=== PATIENT | male | born 1965 | race Caucasian/White ===

== ENCOUNTER 2024-09-15 09:14 | Emergency (ER) | payer OTHER, SELFPAY ==
[2024-09-15 09:28] VITALS: BP 165/96; PULSE 90; RESP 15; TEMP 36.7; O2SAT 100; BMI 28.7
--- NOTE | 2024-09-15 09:36 | CT_ITS ---
FINAL REPORT TECHNIQUE: Thin section axial images were obtained from the lung bases to the pubic symphysis without IV contrast. Coronal reconstruction images were obtained from the axial data. This study was performed with techniques to keep radiation doses as low as reasonably achievable, (ALARA). Individualized dose reduction techniques using automated exposure control or adjustment of mA and/or kV according to the patient's size were employed. CLINICAL HISTORY: Right flank pain, r/o stones COMPARISON: None FINDINGS: In the right lower lung, on image #1, there is a nodular density adjacent to the left atrium. This is likely vascular; however, a pulmonary nodule is not excluded. There are bilateral nonobstructing renal stones. There is mild right hydronephrosis and hydroureter to the level of an obstructing 3 mm right UVJ stone. There are no obstructing stones on the left. The gallbladder is present. The remaining unenhanced solid abdominal organs are without acute abnormality. There is no evidence of small bowel obstruction. There is diverticulosis without evidence of diverticulitis. 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 The duodenum does not cross the midline. The cecum is in the left lower quadrant. The appendix is visualized and is normal. There is a fat-containing right inguinal hernia. There is no lymphadenopathy or ascites. No acute osseous abnormality is identified. IMPRESSION: Obstructing 3 mm right UVJ stone. Bilateral nonobstructing renal stones. No other acute abnormality. Reviewed, Interpreted and Dictated by Cristy Costa MD Transcribed by Dyan Sosa Authenticated and [facility][1]
[2024-09-15 09:39] LABS: Basophils # 0.1 K/mm3 (0-0.2); Basophils % 0.5 % (0.1-2.0); Eosinophils # 0.1 Kmm3 (0.0-0.4); Eosinophils % 1.3 % (0.1-12.0); Hematocrit 41.2 % (42.0-52.0); Hemoglobin 14.4 g/dL (14.1-18.0); Immature Granulocytes # 0.04 10^3uL; Immature Granulocytes % 0.4 %; Lymphocytes # 1.1 K/mm3 (0.7-4.5); Lymphocytes % 10.5 % (10-50); Mean Corpuscular Hemoglobin 31.2 pg (27.0-31.2); Mean Corpuscular Volume 89.4 fl (80-94); Mean Platelet Volume 9.8 fl (7.4-10.4); Monocytes # 0.5 K/mm3 (0.1-1.0); Monocytes % 5.1 % (1.7-9.3); Neutrophils # 8.7 K/mm3 (1.8-7.8); Neutrophils % 82.2 % (37.0-80.0); Nucleated Red Blood Cells # 0 10^3/uL; Nucleated Red Blood Cells % 0 %; Platelet Count 235 K/mm3 (142-424); Red Blood Count 4.61 M/mm3 (4.60-6.20); Red Cell Distribution Width-SD 42.5 fL; White Blood Count 10.6 K/mm3 (4.8-10.8)
[2024-09-15] MEDS: LACTATED RINGERS 1000ML 1,000 ML 999 ML IV (09:46)
[2024-09-15] MEDS: MORPHINE 4MG/ML SYRINGE 4 MG IV (09:47)
[2024-09-15] MEDS: KETOROLAC 30MG/ML VIAL 15 MG IV (09:47)
[2024-09-15] MEDS: ONDANSETRON 4MG/2ML VIAL 4 MG IV (09:47)
[2024-09-15] MEDS: ACETAMINOPHEN 1,000MG/100ML VIAL 1000 MG IV (09:47)
[2024-09-15 10:01] LABS: Alanine Aminotransferase 44 U/L (12-78); Albumin Level 4.4 g/dl (3.5-5.0); Albumin/Globulin Ratio 1.6 (1.1-1.8); Alkaline Phosphatase 82 U/L (38-126); Anion Gap 9.7 mEq/L (5-15); Aspartate Amino Transferase 35 U/L (17-59); Bilirubin,Total 0.8 mg/dl (0.2-1.3); Blood Urea Nitrogen 24 mg/dl (9-20); Calcium 9.3 mg/dl (8.4-10.2); Carbon Dioxide 24 mmol/L (22.0-30.0); Chloride 108 mmol/L (98-107); Creatinine Clearance Estimated 79 mL/min (50-200); Estimated Glomerular Filt Rate 57 ml/min (>60); GFR (African American) 68 ML/MIN (>60); Globulin 2.7 g/dL (1.3-3.2); Glucose 155 mg/dl (74-100); Potassium 3.7 mmoL/L (3.5-5.1); Sodium 138 mmol/L (136-145); Total Protein,Serum 7.1 g/dl (6.3-8.2)
--- NOTE | 2024-09-15 10:05 | ED_ITS ---
Discharge Plan Disposition Patient Disposition: Home, Self-Care Condition: Good Prescriptions Prescriptions: New ketorolac 10 mg tablet 10 mg PO Q8H PRN (Reason: pain) 3 Days Qty: 12 0RF oxycodone 5 mg tablet 5 mg PO Q8H PRN (Reason: pain) Qty: 12 0RF tamsulosin [Flomax] 0.4 mg capsule 0.4 mg PO DAILY Qty: 14 0RF ondansetron 4 mg tablet,disintegrating 4 mg PO Q8H PRN (Reason: nausea and vomiting) 4 Days Qty: 12 0RF Referrals Follow up/Referrals: Provider,Referral, MD [Primary Care Provider] - See instructions Activity Restrictions/Add. Instructions Additional Instructions/Restrictions: You were evaluated in the emergency department today. You were diagnosed with a kidney stone. Follow-up closely with urology. We do not have an interventional urologist at our healthcare facility, but one close option is Dr. Jeronimo Frausto with [facility] who has office hours in [place] ([address] [place] [address] [address], [place] [address] - [phone]). You will need to call a urologist to schedule an appointment. Please make sure you drink plenty of fluids and stay orally hydrated. Toradol is an NSAID like ibuprofen and aleve, so do not take other NSAIDs while taking this medication. Try getting by with toradol and Tylenol, but you may choose to take the narcotic pain medication provided to you in the event of severe pain not controlled by these medications. Do not drive or operate heavy machinery while taking narcotic pain medication, as it can be sedating. Narcotic pain medication can be addicting and can cause constipation. Follow-up closely with your primary care provider as well. Return to the emergency department for new or worsening symptoms such as significant worsening in pain, fever greater than 100.4 ?F, intractable nausea and vomiting. Clinical Impressions Clinical Impression: Calculus of right ureter Stand Alone Forms Stand Alone Forms: Work/School Release Instructions Patient Instructions: DI for Kidney Stones Print Language Print Language: Taiwanese Discharge ED Provider: Michelle Taylor General Adult HPI General Chief complaint: Back Pain/Injury Stated complaint: Side and Back Time Seen by Provider: 09/15/24 09:16 Mode of Arrival: Wheelchair Source of Information: Patient Description of Symptoms (Recalled from ER Triage Doc. by RN): patient states about an hour ago he developed sudden right flank pain and vomitting. he describes the pain as sharp and stabbing. History of Present Illness HPI narrative: This patient is a 59-year-old male who denies significant past medical history presenting to the emergency department for evaluation with concern for severe right flank/back pain that started an hour and a half ago. He states that it radiates around to his right lower quadrant. It came on suddenly and was severe, sharp and stabbing. He has associated nausea and vomiting. He was well prior to this with no other concerns or complaints noted. No prior history of any surgical intra-abdominal issues or kidney stones in the past. No known trauma. Related Data Previous Rx's ?Medication ?Instructions ?Recorded ketorolac 10 mg tablet 10 mg PO Q8H PRN pain 3 days #12 09/15/24 tabs ondansetron 4 mg disintegrating 4 mg PO Q8H PRN nausea and 09/15/24 tablet vomiting 4 days #12 tabs oxycodone 5 mg tablet 5 mg PO Q8H PRN pain #12 tabs 09/15/24 tamsulosin 0.4 mg capsule (Flomax) 0.4 mg PO DAILY #14 caps 09/15/24 Allergies Allergy/AdvReac Type Severity Reaction Status Date / Time No Known Allergies Allergy Verified 09/15/24 09:35 [facility] Disclaimer: The information contained in this section may have been updated after the patient was seen, as this information can be updated by other users. Social History Smoking Status: Never smoker alcohol intake: never current occupational status: employed Travel in the last 8 weeks?: None ROS Obtained: Yes All systems reviewed & no additional complaints except as documented Physical Exam General General appearance: alert and in distress Comment: Extremely uncomfortable appearing, writhing in pain and actively vomiting Head Head exam: atraumatic and normocephalic Eye Eye exam: Present normal appearance, PERRL and EOMI ENT ENT exam: Present normal exam, normal oropharynx, mucous membranes moist and normal external ear exam Neck Neck exam: Present normal inspection, full ROM and trachea midline; Absent tenderness Chest Chest inspection: Present normal inspection and symmetric chest wall rise; Absent tenderness Respiratory Respiratory exam: Present normal lung sounds bilaterally; Absent respiratory distress, wheezes, stridor or accessory muscle use Cardiovascular Cardiovascular exam: Present regular rate and normal rhythm Abdominal Exam Abdominal exam: Present soft; Absent distention, tenderness or guarding Extremities Exam Extremities exam: Present normal inspection, full ROM and normal capillary refill; Absent tenderness or edema Back Exam Back exam: Present full ROM, tenderness and CVA tenderness (R) Neurological Exam Neurological exam: Present alert, oriented X3, CN II-XII intact and normal gait; Absent motor sensory deficit Psychiatric Psychiatric exam: Present normal affect and normal mood Skin Skin exam: Present warm and dry Medical Decision Making Medical Records Medical records reviewed: Yes I reviewed the patient's medical records. Screening: Per USPSTF and CDC recommendations, given the prevalence of disease in our region, it is our hospital?s policy to screen for HIV and viral Hepatitis for all patients aged 18 and over and those with ongoing risk factors. Franc Inquiry Pt receiving controlled substance: Yes Franc was queried for this patient: Yes Risks and benefits of using a controlled substance: were discussed with pt by me Vital Signs: 09/15/24 09:28 09/15/24 11:13 09/15/24 11:43 Temperature 98.1 F Temperature Source Oral Pulse Rate 90 80 Pulse Rate [Right Radial] 90 Respiratory Rate 15 16 Blood Pressure 130/81 143/88 H Blood Pressure [Right Arm] 165/96 H Blood Pressure Mean [Right Arm] 119 Blood Pressure Source Blood Pressure Source [Right Arm] Automatic Cuff Blood Pressure Position Blood Pressure Position [Right Arm] Sitting 02 Sat by Pulse Oximetry 100 100 96 Oxygen Delivery Method Room Air Room Air Room Air 09/15/24 12:00 09/15/24 12:32 Temperature 97.9 F Temperature Source Oral Pulse Rate 94 H 82 Pulse Rate [Right Radial] Respiratory Rate 18 Blood Pressure 143/88 H 143/88 H Blood Pressure [Right Arm] Blood Pressure Mean [Right Arm] Blood Pressure Source Automatic Cuff Blood Pressure Source [Right Arm] Blood Pressure Position Supine Blood Pressure Position [Right Arm] 02 Sat by Pulse Oximetry 100 Oxygen Delivery Method Room Air Lab Data Lab results reviewed: Yes I reviewed the patient's lab results. Lab Results 09/15/24 09:23: WBC 10.6, RBC 4.61, Hgb 14.4, Hct 41.2 L, MCV 89.4, MCH 31.2, MCHC 35.0, RDW 13.0, Plt Count 235, MPV 9.8, Neut % (Auto) 82.2 H, Lymph % (Auto) 10.5, [place] % (Auto) 5.1, Eos % (Auto) 1.3, Baso % (Auto) 0.5, Neut # (Auto) 8.7 H, Lymph # (Auto) 1.1, Canadian # (Auto) 0.5, Eos # (Auto) 0.1, Baso # (Auto) 0.1, Sodium 138, Potassium 3.7, Chloride 108 H, Carbon Dioxide 24, Anion Gap 9.7, BUN 24 H, Creatinine 1.30 H, Estimated Creat Clear 79, Estimated GFR 57 L, Est GFR ( Amer) 68, Glucose 155 H, Calcium 9.3, Total Bilirubin 0.8, AST 35, ALT 44, Alkaline Phosphatase 82, Total Protein 7.1, Albumin 4.4, Globulin 2.7, Albumin/Globulin Ratio 1.6 09/15/24 12:03: Urine Color Yellow, Urine Appearance Clear, Urine pH 6.0, Ur Specific [place] 1.020, Urine Protein Negative, Urine Glucose (UA) Negative, Urine Ketones Negative, Urine Blood Negative, Urine Nitrate Negative, Urine Bilirubin Negative, Urine Urobilinogen 0.2, Ur Leukocyte Esterase Negative, Urine RBC None, Urine WBC None, Ur Squamous Epith Cells Occasional, Urine Bacteria Trace 09/15/24 09:23 09/15/24 09:23 Orders (Tests/Meds): ED MEDICATIONS Discontinued Medications Generic Name Dose Route Start Last Admin Trade Name Marixa PRN Reason Stop Dose Admin Acetaminophen 1,000 mg 09/15/24 09:36 09/15/24 09:47 Acetaminophen 1,000mg/100ml Vial IV 09/15/24 09:37 1,000 mg ONCE ONE Administration Lactated Ringer's 1,000 mls @ 999 mls/hr 09/15/24 09:36 09/15/24 09:46 Lactated Ringer's 1000 Ml Bag IV 09/15/24 10:36 999 mls/hr .Q1H1M ONE Administration Ketorolac Tromethamine 15 mg 09/15/24 09:36 09/15/24 09:47 Ketorolac 30mg/Ml Vial IV 09/15/24 09:37 15 mg ONCE ONE Administration Morphine Sulfate 4 mg 09/15/24 09:36 09/15/24 09:47 Morphine 4mg/Ml Syringe IV 09/15/24 09:37 4 mg ONCE ONE Administration Ondansetron HCl 4 mg 09/15/24 09:36 09/15/24 09:47 Ondansetron 4mg/2ml Vial IV 09/15/24 09:37 4 mg ONCE ONE Administration Oxycodone/Acetaminophen 1 each 09/15/24 12:36 09/15/24 12:37 Oxycodone 10mg W/Apap 325mg Tablet PO 09/15/24 12:37 1 each ONCE ONE Administration ORDERS Category Date Time Status CT abdomen pelvis wo con Stat Cat Scan 09/15/24 09:36 Completed CBC w/Auto Diff [Complete Blood Count Auto Diff] Stat Lab 09/15/24 09:23 Completed CMP [Comprehensive Metabolic Panel] Stat Lab 09/15/24 09:23 Completed UA [Urinalysis and Microscopic] Stat Lab 09/15/24 12:03 Completed Urine Culture Stat Micro 09/15/24 12:03 Received Medical Decision Narrative: In summary, this patient is a 59-year-old man presenting to the Emergency Department for evaluation of severe right flank pain that started an hour and a half ago. Differential diagnoses considered include but are not limited to ureterolithiasis, pyelonephritis, cholecystitis, appendicitis, colitis, musculoskeletal strain/sprain. Ruling out the most morbid conditions drove assessment. On exam, the patient is very uncomfortable appearing, writhing around in distress and actively vomiting. He has right CVA tenderness. Abdominal exam is relatively benign. Workup included CBC, CMP, urinalysis, urine culture, CT abdomen pelvis without IV contrast. He was given a bolus of IV fluids as well as IV morphine, Toradol, acetaminophen, and Zofran for symptomatic improvement. I independently interpreted CT scan prior to the radiologist read and noted right-sided hydronephrosis with a ureteral stone that appears to have distended the bladder versus a right at the UVJ. Please see their read for final interpretation. They note that it is at the UVJ. Labs were obtained that demonstrated reassuring CBC with no significant leukocytosis, chemistry demonstrates a creatinine of 1.3 without prior for comparison. Urinalysis is not concerning for infection On reassessment, patient had great improvement after administration of IV morphine, Toradol, Zofran and fluids. He was feeling a whole lot better, up until about a time for discharge, at which point he was treated with oral oxycodone. Overall, his stone is very distal, is only 3 mm, and he has no significant GAUDENCIO, leukocytosis, or urine is concerning for infection. Given this, I feel that he is appropriate for discharge home with trial of passage. He was given instructions for very close follow-up with primary care as well as a urologist. He is given prescriptions for oxycodone, Zofran, Toradol, and Flomax. Strict return precautions were given. Critical Care Critical Care Time Critical Care Time: No
--- OUTSIDE RECORDS SUMMARY | 2024-09-15 10:23 | XMS_ITS | Data Portability ---
Author Organization [facility] [place] & Linda DUNCAN ADMIN Address [address] [place] [id number] Assessment No assessment recorded. Plan of Treatment Reminders Order Date Submit Date Provider Last Modified By Organization Details Last Modified Time Details Appointments None recorded. Lab pathology study - Punch BX from base of left side of neck 2022 023 [email or web address] [facility], [address], [facility] [address], [place], [address], 3 08:34:[address] referral - 58-year-old white male with history of superficial squamous cell carcinoma presents with a scaly lesion on left side of his nose present times several months to a year. May very well be an actinic keratosis but with his history a thought this should be evaluated further as well as a full skin check 2023 024 AMANDO [facility], [address] [place] [address], [address], 4 08:49:23 Procedures None recorded. Surgeries None recorded. Imaging XR, chest + abdomen 2022 023 [facility], [address], [place], [address], 3 16:43:56 Medication Orders omeprazole 40 mg capsule,del ayed release 2022 023 AMANDO [facility], [address] [facility], [place], [address], 3 16:33:38 Patient TargetsNo targets recorded. 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 May very well be an actinic keratosis but with his history a thought this should be evaluated further as well as a full skin check Referring Physician: Sridhar Mcallister, Family Medicine, Encounter Date: 10/30/2023 Results Created Date Observation Date Name Description Value Unit Range Abnormal Flag Note LastModifiedBy Organization Detail LastModifiedTime 04/28/2006/03/2023 PATHO LOGY REPOR T . Yaneli t Mater ial submi tted: . neck - BASE OF LEFT NECK, PUNCH BIOPS Y. Modif iers: base, left Not Available [facility] ([facility]) [address] [facility], [place], [address], 06/03/2023 15:17:21 04/28/2006/03/2023 PATHO LOGY REPOR T . Yaneli t Diagn osis: BASE OF LEFT NECK, PUNCH BIOPS Y: - SUPER FICIA L SQUAM OUS CELL CARCI NOMA. - SURGI ZARINA TERESA NS NEGAT PHUONG. COMME NT: H/E-S JAYLEN Barry RECUT S X2 EXAMI MUSA FOR BLOCK A1. [facility] 06/02 1406 Local Not Available [facility] ([facility]) [address] [facility], [place], [address], 06/03/2023 15:17:21 04/28/20 23 06/03/2023 PATHO LOGY REPOR T . Commen t Elect isela osborne d: . Abrahan glass MD, Patho logis t Not Available [facility] ([facility]) [address] [facility], [place], [address], 06/03/2023 15:17:21 04/28/2006/03/2023 PATHO LOGY REPOR T . Commen t Gross descr iptio n: . RECEI CHAYO IN FORMA [facility]URO LABEL ED WITH THE PATIE NTS NAME IS A 0.6 X 0.4 X 0.1 CM IRREG ULAR PIECE OF SHAVE D BROWN GA SKIN. INKED IN BLACK AT THE RESEC TION TERESA N, BISEC ALEXANDRA AND SUBMI TTED ENTIR LUCILLE IN ONE CASSE TTE. MZH/B XS 05/28 1524 Local Not Available [facility] ([facility]) [address] [facility], [place], [address], 06/03/2023 15:17:21 04/28/20 23 06/03/2023 PATHO LOGY REPOR T . Commen t Patho logis t provi ded ICD-1 0: L98.9 Not Available [facility] ([facility]) [address] [facility], [place], [address], 06/03/2023 15:17:21 04/28/20 23 06/03/2023 PATHO LOGY REPOR T . Commen t CPT . 55061 1 Not Available [facility] ([facility]) [address] [facility], [place], [address], 06/03/2023 15:17:21 04/14/20 23 04/14/2023 XR, chest + abdom en No observ ation record ed. [email or web address] [facility] - [facility] [address], [place], [address], 10/09/2023 14:57:17 Result Notes None recorded. Problems Name Problem SNOMED Code Status Onset Date Resolution Date Notes Provider Name and Address Organization Details Recorded Time Abdominal pain 73719214 Active 023 TRENA STEWART ena, [facility] & [place] 15:52:16 Problem Notes None recorded. Procedures Surgical History Date Name Laterality Status Provider Name and Address Organization Details Recorded Time 04/28/20 Punch Biopsy completed Sridhar Mcallister MD [address], [place], [address], [facility] & [place] 04/28/2023 20:05:08 closed reduction of fracture of humerus with percutaneous fixation using bone pin completed Tanika NAVARRO [facility] & [place] 04/14/2023 15:22:42 Back Surgery completed [facility]ARR[facility] & [place] 04/14/2023 15:22:54 Imaging Results Imaging Date Name Status LastModified by Organiz ation Details LastModified Time 04/14/2023 XR, chest + abdomen completed [email or web address] [facility] - [facility] [address], [place], [address], 10/09/2023 14:57:17 Procedure Notes None recorded. Medical Equipment None Reported. Allergies No known drug allergies Medications Name Sig Start Date Stop Date Status Note LastModified by Organization Details LastModified Time omeprazole 40 mg capsule,amy yed release TAKE 1 CAPSULE BY MOUTH ONCE DAILY active Not Available Not Available No t Available Vitals Date Recorded Body height Body mass index (BMI) Body weight Body temperature Oxygen saturation Oxygen saturation in Arterial blood by Pulse oximetry Heart rate Systolic blood pressure Diastolic blood pressure Provider Name and Address Organization Details Last Updated DateTime 3 177.8 cm 30 kg/m2 06038.2 1 g 97.3 [degF] 98 % 98 % 84 /min 128 mm[Hg] 84 mm[Hg] Tanika Brock [facility] & [place] 3 15:27:52 Date Recorded Body height Provider Name an d Address Organization Details Last Updated DateTime 04/28/2023 177.8 cm Sridhar Mcallister MD [address] [facility], [place], [address], [facility] & [place] 04/28/2023 19:54:31 Date Recorded Body height Body mass index (BMI) Body weight Body temperature Oxygen saturation Oxygen saturation in Arterial blood by Pulse oximetry Heart rate Systolic blood pressure Diastolic blood pressure Provider Name and Address Organization Details Last Updated DateTime 4 177.8 cm 29.9 kg/m2 35578.9 1 g 98 [degF] 97 % 97 % 89 /min 112 mm[Hg] 74 mm[Hg] Tanika Jerome [facility] & [place] 4 16:32:13 Social History Question Answer Notes LastModified by Organizat ion Details LastModified Time Tobacco Smoking Status Never Smoker Tanika Jerome [facility] & [place] 04/14/2023 15:21:27 What Is Your Level Of Alcohol Consumption? Occasional [email or web address] Information not available 04/14/2023 What Is Your Level Of Caffeine Consumption? Moderate [email or web address] Information not available 04/14/2023 Do You Use Any Illicit Or Recreational Drugs? No [email or web address] Information not available 04/14/2023 Sex: Unknown Functional Status None recorded. Mental Status None recorded. Family History Nothing Reported. Medical History No medical history recorded. Past Encounters Encounter ID Performer Location Encounter Start Date Encounter Closed Date Diagnosis/Indication Diagnosis SNOMED-CT Code Diagnosis ICD10 Code Diagnosis Note [id number] Sridhar Mcallister MD [facility] [address] [facility] [address] [place] [address] 04/14/2023 15:07:12 04/14/2023 16:23:39 Excessive belching 180125998 R14.2 Abdominal series today was unremarkab le. Will eliminate milk products and start on Omeprazole 40 mg daily. Call or RTC in 1 week. If not improving, consider referral to GI Skin lesion 17885610 L98 .9 RTC for excision and send out to path [id number] Sridhar Mcallistre MD [facility] [address] [facility],[address] [place] [address] 04/28/2023 16:07:04 04/29/2023 07:34:56 Skin lesion 63771465 L98.9 Punch BX performed under sterile conditions . Tolerated well. Specimen to be sent to pathology. RTC if any signs of infection arise such as erythema, swelling, drainage, of increasing tenderness [id number] Sridhar Mcallister MD [facility] [address] [place] [address] 10/30/2023 15:35:15 10/30/2023 16:51:53 Lesion of skin of nose 8146395705 6543628 J34.89 this may be a simple actinic keratosis as it has apparently been there for some time but given patient's history of superficia l squamous cell carcinoma I would like him to be evaluated by Dermatolog y. We will refer Bilateral dermatochalasis of lower eyelids 2025138320 53927316 H02.832 H02.835 it is possible that patient is rubbing his eyes so frequently or with enough pressure to disrupt some superficia l blood vessels that may have caused a blue line to appear under his eye but it is fairly impercepti ble now and does not appear to be an issue Health Concerns Section Related Observation LastModified by Organization Detai ls LastModified Time None Recorded Concern Status LastModified by Organization Details LastModified Time None Recorded Advance Directives Directive None Recorded Payers Insurance Date Sequence Insurance Name Policy Number Policy Frye Covered Member ID Frye Member ID Guarantor Name 10/30/2023 1 [employer] [id number] Aaron Jimenez [id number] Aaron Jimenez 10/30/2023 1 [id number] [id number] Aaron Jimenez [id number] Aaron Jimenez Notes Date Note Type Note Provider Name and Address Organization Details Recorded Time 3 text/html 58 yo WM presents to establish care. Moved here from [place] x 4 months. Has some concerns over chest pain radiating to back. Initially he states pain began in his stomach. Only relieved by hefty burping. Was mostly worried by pain in his chest. Only OTC meds he has taken are Tums and Gas X.PMH: No chronic medical problemsPast Surgical history to repair a FX of LLEAlso had an L3-4 fusionMEDS: On no chronic medsALL:NKDASOC HX: Lives with , Drives a truck, non-smoker, rare alcoholAdditionally he has askin lesion he wants me to check out Sridhar Mcallister MD [address], [place], [address], [facility] & [place] 04/14/2023 16:42:44 3 text/html Lesion on left side of neck that started as a skin tag that he has picked at has now gotten bigger and formed a crusted cap that is irritating him Sridhar Mcallister MD [address], [place], [address], [facility] & [place] 04/29/2023 13:02:13 4 text/html Patient presents mostly at the insistence of his to have a lesion on the left side of his nose evaluated. Additionally he was wondering if I had any idea why under his left eye would have gotten so dark. Says the other day there was sort of a black line running from the bridge to underneath his eye. He denies any injury or trauma. States he has always had bags under his eyes. Sridhar Mcallister MD [address], [place], [address], [facility] & [place] 10/30/2023 21:36:44
[2024-09-15 11:13] VITALS: BP 130/81; PULSE 90; RESP 16; O2SAT 100
[2024-09-15 11:43] VITALS: BP 143/88; PULSE 80; O2SAT 96
--- NOTE | 2024-09-15 11:54 | PC.NURSE ---
This RN rounds with patient. Pt denies any needs at this time. Pt reminded of need for urine sample.
[2024-09-15 12:00] VITALS: BP 143/88; PULSE 94; O2SAT 100
--- NOTE | 2024-09-15 12:06 | PC.NURSE ---
Pt urinated for a second time and strained with no stone. Urine was also sent up to lab
[2024-09-15 12:07] LABS: Microscopic, Urine URINE MICROSCOPIC (MICROSCOPIC)
[2024-09-15 12:15] LABS: Appearance,Urine CLEAR (Clear); Bilirubin,Urine Negative (Negative); Blood, Urine Negative (Negative); Color,Urine YELLOW (Yellow); Glucose,Urine (UA) Negative (Negative); Ketones,Urine Negative (Negative); Leukocyte Esterase,Urine Negative (Negative); Nitrate,Urine Negative (Negative); Protein,Urine Negative (Negative); Urobilinogen,Urine 0.2 EU/dl (0.2)
[2024-09-15 12:32] VITALS: BP 143/88; PULSE 82; RESP 18; TEMP 36.6; O2SAT 100
[2024-09-15] MEDS: OXYCODONE 10MG W/APAP 325MG TABLET 1 EACH PO (12:37)
[2024-09-15 12:39] LABS: Bacteria,Urine Trace /lpf; Squamous Epithelial Cell,Urine Occasional #/hpf (0-5)
== END 2024-09-15 12:41 | disposition home or self-care (01) ==
PROVIDERS: Emergency Provider Emergency Medicine
DX: N13.0 Hydronephrosis with ureteropelvic junction obstruction (principal); N13.4 Hydroureter; R10.31 Right lower quadrant pain; M54.59 Other low back pain; R11.0 Nausea
CPT/HCPCS: 74176; 80053; 81001; 85025; 87086; 96361; 96374; 96375; 99285; J0131; J1885; J2270; J2405; J7120